=== PATIENT | female | born 1985 | race Caucasian/White ===

== ENCOUNTER → 2017-06-21 | Outpatient (CLI) | payer OTHER ==
[~2017-06-21] MED LIST: IOHEXOL 300 MG/ML 50 ML BTL (for RAD DIAG) I-UTERINE ONE
--- NOTE | 2017-06-21 08:35 | RADRPT ---
EXAM DATE/TIME: 06/21/2017 07:43 [place] COMPARISON: No previous studies available for comparison. INDICATIONS : Ovarian dysfunction. FLUORO TIME: 0.8 minutes IMAGE COUNT: 3 CONTRAST: 20 cc Omnipaque 300 (iohexol) DEVICE: [place] Cannula MEDICAL HISTORY : None. SURGICAL HISTORY : None. ENCOUNTER: Initial ACUITY: 4 - 6 months PAIN SCORE: 0/10 LOCATION: Cervix. FINDINGS: Preliminary film is within normal limits. Technical aspect of the cervical cannulation injection of contrast performed by the referring physician. Examination is performed under fluoroscopic control. There are 2 uterine horns with intercornual angle of 109. There is rapid filling of the fallopian tu bes and free spillage into the pelvis bilaterally. CONCLUSION: 1. Fallopian tubes are patent bilaterally. 2. 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 MRI could help differenti ate and further characterize, if needed clinically. Han Burgos MD on June 21, 2017 at 8:23 Board Certified Radiologist. This report was verified electronically.
== END ==
LOC: HRAD 07:30
PROVIDERS: ATTEND Obstetrics & Gynecology
DX: E28.9 Ovarian dysfunction, unspecified (principal)
CPT/HCPCS: 58340; 74740; Q9967